=== PATIENT | female | born 1940 | race Caucasian/White ===

== ENCOUNTER 2025-06-02 10:11 | Outpatient (CLI) | payer MEDICARE, BC, SELFPAY | END 2025-06-02 10:12 | disposition home or self-care (01) | LOC: WOUND 10:16 | PROVIDERS: Visit Provider Nurse Practitioner Family | DX: S81.812A Laceration without foreign body, left lower leg, initial encounter (principal); S80.12XA Contusion of left lower leg, initial encounter; L03.116 Cellulitis of left lower limb; W54.1XXA Struck by dog, initial encounter; E11.9 Type 2 diabetes mellitus without complications; Z79.84 Long term (current) use of oral hypoglycemic drugs | CPT/HCPCS: 97597; G0463 ==

== ENCOUNTER 2025-06-08 14:39 | Outpatient (CLI) | payer MEDICARE, BC, SELFPAY | END 2025-06-08 14:40 | disposition home or self-care (01) | LOC: WOUND 14:39 | PROVIDERS: Visit Provider Nurse Practitioner Family | DX: S81.812A Laceration without foreign body, left lower leg, initial encounter (principal); S80.12XA Contusion of left lower leg, initial encounter; W54.1XXA Struck by dog, initial encounter; E11.9 Type 2 diabetes mellitus without complications; L03.116 Cellulitis of left lower limb; Z79.84 Long term (current) use of oral hypoglycemic drugs | CPT/HCPCS: 11042 ==

== ENCOUNTER 2025-06-15 14:49 | Outpatient (CLI) | payer MEDICARE, BC, SELFPAY | END 2025-06-15 14:50 | disposition home or self-care (01) | PROVIDERS: Visit Provider Nurse Practitioner Family | DX: S81.812A Laceration without foreign body, left lower leg, initial encounter (principal); S80.12XA Contusion of left lower leg, initial encounter; W54.1XXA Struck by dog, initial encounter; L03.116 Cellulitis of left lower limb; E11.9 Type 2 diabetes mellitus without complications; Z79.84 Long term (current) use of oral hypoglycemic drugs | CPT/HCPCS: 11042 ==

== ENCOUNTER 2025-06-22 14:46 | Outpatient (CLI) | payer MEDICARE, BC, SELFPAY | END 2025-06-22 14:47 | disposition home or self-care (01) | LOC: WOUND 14:46 | PROVIDERS: Visit Provider Nurse Practitioner Family | DX: S81.812A Laceration without foreign body, left lower leg, initial encounter (principal); S80.12XA Contusion of left lower leg, initial encounter; W54.1XXA Struck by dog, initial encounter; L03.116 Cellulitis of left lower limb; R60.9 Edema, unspecified; E11.9 Type 2 diabetes mellitus without complications; Z79.84 Long term (current) use of oral hypoglycemic drugs | CPT/HCPCS: 11042 ==

== ENCOUNTER 2025-06-22 15:55 | Outpatient (CLI) | payer MEDICARE, BC, SELFPAY ==
--- NOTE | 2025-06-22 16:00 | CRLHL7_ITS ---
For Patients: As a result of the Cures Act, medical imaging exams and procedure reports are released immediately into your electronic medical record. You may view this report before your referring provider. If you have questions, please contact your health care provider. INDICATION: Leg pain and swelling. TECHNIQUE: Ultrasound venous duplex lower left extremity. Compression venous exam was performed using mcdaniels-scale, color Doppler, and spectral Doppler analysis. COMPARISON: None. FINDINGS: Deep veins: Sonographic imaging demonstrates the left common femoral, deep femoral, superficial femoral, popliteal, posterior tibial and the contralateral right common femoral veins to be fully compressible. Superficial veins: Partially visualized. Patient with history of venous stripping. IMPRESSION: No sonographic evidence of deep venous thrombus in the imaged left lower extremity. Dictated by Louie Cannon MD @ 06/22/2025 5:17:54 PM (Electronically Signed)
== END 2025-06-22 15:56 | disposition home or self-care (01) ==
LOC: US 15:56
PROVIDERS: Visit Provider Nurse Practitioner Family
DX: R60.9 Edema, unspecified (principal); S80.12XA Contusion of left lower leg, initial encounter
CPT/HCPCS: 93971

== ENCOUNTER 2025-06-29 13:42 | Outpatient (CLI) | payer MEDICARE, BC, SELFPAY | END 2025-06-29 13:43 | disposition home or self-care (01) | LOC: WOUND 13:43 | PROVIDERS: Visit Provider Nurse Practitioner Family | DX: S81.812A Laceration without foreign body, left lower leg, initial encounter (principal); S80.12XA Contusion of left lower leg, initial encounter; W54.1XXA Struck by dog, initial encounter; I87.312 Chronic venous hypertension (idiopathic) with ulcer of left lower extremity; E11.622 Type 2 diabetes mellitus with other skin ulcer; L97.822 Non-pressure chronic ulcer of other part of left lower leg with fat layer exposed; Z79.84 Long term (current) use of oral hypoglycemic drugs | CPT/HCPCS: 11042 ==

== ENCOUNTER 2025-07-06 11:20 | Outpatient (CLI) | payer MEDICARE, BC, SELFPAY | END 2025-07-06 11:21 | disposition home or self-care (01) | LOC: WOUND 11:20 | PROVIDERS: Visit Provider Nurse Practitioner Family | DX: S81.812A Laceration without foreign body, left lower leg, initial encounter (principal); W54.1XXA Struck by dog, initial encounter; I87.312 Chronic venous hypertension (idiopathic) with ulcer of left lower extremity; E11.622 Type 2 diabetes mellitus with other skin ulcer; L97.822 Non-pressure chronic ulcer of other part of left lower leg with fat layer exposed | CPT/HCPCS: 11042 ==

== ENCOUNTER 2025-07-13 14:07 | Outpatient (CLI) | payer MEDICARE, BC, SELFPAY | END 2025-07-13 14:08 | disposition home or self-care (01) | LOC: WOUND 14:07 | PROVIDERS: Visit Provider Nurse Practitioner Family | DX: S81.812D Laceration without foreign body, left lower leg, subsequent encounter (principal); W54.1XXD Struck by dog, subsequent encounter; E11.9 Type 2 diabetes mellitus without complications; R60.9 Edema, unspecified; Z79.84 Long term (current) use of oral hypoglycemic drugs | CPT/HCPCS: G0463 ==